=== PATIENT | male | born 1995 | race African-American/Black ===

== ENCOUNTER 2018-03-19 12:12 | Emergency (ER) | payer SELFPAY ==
[~2018-03-19] VITALS: Ht 185.4 cm; Wt 132.4 kg
[~2018-03-19 12:12] MED LIST: KEFLEX500 MG ORAL; MOTRIN IB200 MG ORAL; TYLENOL100 MG/11 PO; ZOFRAN4 MG ORAL
[2018-03-19 12:18] VITALS: BP 136/80
[2018-03-19] MEDS ORDERED: NKM (12:20)
--- NOTE | 2018-03-19 12:50 | Emergency Room Report ---
History of Present Illness General Chief Complaint: Male Urogenital Problems Source: Patient Present Illness HPI The patient is a 22-year-old male presenting for hematuria and increased urinary frequency for the past day. he also admits to a clear discharge. He is sexually active with women only. He denies any other symptoms including N, V, F , chills, abd pain, back pain, dysuria. Allergies: Coded Allergies: No Known Allergies (Unverified , 05/10/13) Patient History Past Medical History: see triage record Pertinent Family History: none Reviewed Nursing Documentation: PMH: Agreed; PSxH: Agreed Nursing Documentation-PMH Past Medical History: No Stated History Review of Systems All Other Systems: negative except mentioned in HPI Physical Exam Vital Signs Date Time Temp Pulse Resp B/P (MAP) Pulse Ox O2 Delivery O2 Flow Rate FiO2 03/19/18 12:18 98.2 89 18 136/80 96 Room Air 98.2 Sp02 EP Interpretation: reviewed, normal General Appearance: no apparent distress, alert, GCS 15, non-toxic Head: normocephalic, atraumatic Eyes: bilateral eye normal inspection, bilateral eye PERRL Gastrointestinal: normal bowel sounds, non tender, soft, non-distended, no guarding, no rebound Genitourinary: normal inspection, no CVA tenderness Musculoskeletal: back normal, gait/station normal, normal range of motion, non- tender, calf tenderness Neurologic: alert, oriented x3, responsive, motor strength/tone normal, sensory intact, speech normal Psychiatric: judgement/insight normal, memory normal, mood/affect normal, no suicidal/homicidal ideation Skin: normal color, no rash, warm/dry, well hydrated Medical Decision Making PA Attestation Dr. Colbert is my supervising physician. Patient management was discussed with my supervising physician Diagnostic Impression: Primary Impression: Urinary tract infection Qualified Codes: N39.0 - Urinary tract infection, site not specified; R31.9 - Hematuria, unspecified ER Course The patient is a 22-year-old male presenting for hematuria and increased urinary frequency for the past day. Differential diagnosis considered but not limited to: UTI, pyelonephritis, STD , among others PE: Afebrile. NAD Abd soft and non tender. No CVA tenderness Urinalysis is consistent with infection The patient will be treated with Keflex. ER precautions are given Laboratory Tests Test 03/19/18 12:29 Urine Color Yellow Urine Appearance Slightly cloudy Urine pH 5 (4.5-8.0) Urine Specific [place] 1.015 (1.005-1.035) Urine Protein 2+ (NEGATIVE) H Urine Glucose (UA) Negative (NEGATIVE) Urine Ketones Negative (NEGATIVE) Urine Occult Blood 5+ (NEGATIVE) H Urine Nitrite Negative (NEGATIVE) Urine Bilirubin Negative (NEGATIVE) Urine Urobilinogen 1 MG/DL (0.0-1.0) H Urine Leukocyte Esterase 3+ (NEGATIVE) H Urine RBC 30-40 /HPF (0 - 0) H Urine WBC 60-80 /HPF (0 - 0) H Urine Squamous Epithelial Cells Occasional /LPF Urine Bacteria Few /HPF (NONE) Lab Results Impression Consistent with UTI Last Vital Signs Date Time Temp Pulse Resp B/P (MAP) Pulse Ox O2 Delivery O2 Flow Rate FiO2 03/19/18 12:18 98.2 89 18 136/80 96 Room Air 98.2 Status: improved Disposition: HOME, SELF-CARE Condition: Improved Scripts Cephalexin* (KEFLEX*) 500 Mg Capsule 500 MG ORAL EVERY 12 HOURS, #14 CAP 0 Refills Prov: AQUILINO RICE 03/19/18 Referrals: NOT CHOSEN IPA/,REFERRING (PCP) AQUILINO RICE March 19, 2018 12:50
[2018-03-19 12:54] LABS: APPEARANCE,URINE SLIGHTLY CLOUDY; BILIRUBIN, URINE NEGATIVE (NEGATIVE); GLUCOSE, URINE (UA) NEGATIVE (NEGATIVE); KETONES,URINE NEGATIVE (NEGATIVE); LEUKOCYTE ESTERASE ,URINE 3+ (NEGATIVE); NITRITE,URINE NEGATIVE (NEGATIVE); PH,URINE 5 (4.5-8.0); PROTEIN,URINE 2+ (NEGATIVE); UROBILINOGEN,URINE 1 MG/DL (0.0-1.0)
[2018-03-19 13:07] LABS: COLOR,URINE YELLOW
[2018-03-19] MEDS ORDERED: CEPHALEXIN500 MG ORAL ×2 (13:10→13:31)
[2018-03-19] MEDS ORDERED: Cephalexin 500mg cap ORAL ONE (13:15)
[2018-03-19 13:31] VITALS: BP 108/82
== END 2018-03-19 12:45 | disposition home or self-care (01) ==
LOC: EMR 12:31
DX: N39.0 Urinary tract infection, site not specified (principal); R31.9 Hematuria, unspecified
CPT/HCPCS: 81003; 87086; 87181; 99283